=== PATIENT | female | born 1955 | race African-American/Black ===

== ENCOUNTER 2017-01-05 23:49 | Emergency (ER) | payer MEDICARE, MEDICAID ==
[~2017-01-05] VITALS: Ht 167.6 cm; Wt 91.0 kg
[~2017-01-05 23:49] MED LIST: AMLO5TAB4 PO; ASPI-1158 PO; ATOR-2 PO; CLOP75TA2 PO; DIPH25TA24 PO; GABA300C PO; HUMULIN; HYDR-3927 PO; IBUP200C48 PO; LISI-604 PO; METF10002 PO; METO25TA6 PO; NIAC500C8 PO; OMEP20CA10 PO; PENT400T2 PO; TRAM50TA3 PO; TRAZ300T11 PO
[2017-01-06] MEDS ORDERED: DEXAMETHASONE 10MG/ML 1ML VIAL IM SCH (01:00)
[2017-01-06] MEDS ORDERED: FAMOTIDINE 20MG TABLET PO ONE (01:00)
[2017-01-06] MEDS ORDERED: DIPHENHYDRAMINE 25MG CAPSULE PO ONE (01:00)
[2017-01-06 01:35] VITALS: BP 148/57
== END 2017-01-06 02:12 | disposition home or self-care (01) ==
LOC: ER 23:49
DX: L50.0 Allergic urticaria (principal); Z88.0 Allergy status to penicillin; Z79.82 Long term (current) use of aspirin; E11.9 Type 2 diabetes mellitus without complications; I10 Essential (primary) hypertension; Z95.5 Presence of coronary angioplasty implant and graft
CPT/HCPCS: 96372; 99283; J1100; Q0163

== ENCOUNTER 2018-10-21 18:25 | Emergency (ER) | payer MEDICAID, MEDICARE ==
[~2018-10-21] VITALS: Ht 170.2 cm; Wt 102.0 kg
[~2018-10-21 18:25] MED LIST changes: +CLOP75TA16 PO; -CLOP75TA2 PO; +IBUP-2437 PO; -IBUP200C48 PO; +METF-416 PO; -METF10002 PO; +PENT400T11 PO; -PENT400T2 PO; -TRAM50TA3 PO; -TRAZ300T11 PO
[2018-10-21 23:02] VITALS: BP 165/89
== END 2018-10-22 00:37 | disposition home or self-care (01) ==
LOC: ER 18:25
DX: H10.9 Unspecified conjunctivitis (principal); J03.80 Acute tonsillitis due to other specified organisms; B96.89 Other specified bacterial agents as the cause of diseases classified elsewhere
CPT/HCPCS: 87070; 87430; 99283